=== PATIENT | male | born 1930 | race Caucasian/White ===

== ENCOUNTER → 2018-04-28 | Outpatient (CLI) | payer OTHER ==
[~2018-04-28] MED LIST: ALB5IS NEB; AMIODORONE; AMOX-263 PO; CARV3.1240 PO; FLUT250M9; FURO20TA PO; HYDR-4683 PO; LEVO125T7 PO; PROPAFENONE 150 MG; SENN-72 PO; ZAFI1TAB3
[2018-04-28 11:08] LABS: Basophils # (auto) 0.1 uL; Nucleated Red Blood Cells % 0.2 %
[2018-04-28 11:14] LABS: Basophils % (auto) 0.9 % (0.0-2.0); Eosinophils % (auto) 7.7 % (0.0-7.0); Hematocrit 55.5 % (41.0-53.0); Hemoglobin 18.6 g/dL (13.5-17.5); Lymphocytes # (auto) 1.4 uL; Lymphocytes % (auto) 11.5 % (10.0-50.0); Mean Corpuscular Hemoglobin 32.5 pg (28.0-32.0); Mean Corpuscular Hgb Conc. 33.5 g/dL (32.0-36.0); Mean Corpuscular Volume 97.1 fL (80.0-100.0); Monocytes # (auto) 1.4 uL; Monocytes % (auto) 11.1 % (0.0-12.0); Neutrophils # (auto) 8.6 uL; Neutrophils % (auto) 68.8 % (37.0-80.0); Platelet Count (auto) 405 10^3/uL (140-450); Red Blood Cells 5.71 10^6/uL (4.5-5.90); Red Cell Distribution Width 17.4 % (11.8-14.3); White Blood Cell 12.5 10^3/uL (4.4-10.8)
[2018-04-28 16:40] LABS: Potassium 4.5 mmol/L (3.5-5.1)
[2018-04-28 16:41] LABS: Albumin 3.2 g/dL (3.4-5.0); BUN/Creatinine Ratio 23.3; Bilirubin, Total 0.8 mg/dL (0.2-1.0); Calcium 8.7 mg/dL (8.5-10.1)
== END | disposition home or self-care (01) ==
LOC: LAB 10:49
PROVIDERS: ATTEND Internal Medicine
DX: J44.9 Chronic obstructive pulmonary disease, unspecified (principal); E78.2 Mixed hyperlipidemia; N18.2 Chronic kidney disease, stage 2 (mild)
CPT/HCPCS: 36415; 80053; 84443; 85025

== ENCOUNTER → 2018-05-08 | Outpatient (CLI) | payer OTHER | END | disposition home or self-care (01) | LOC: RT 08:52 | PROVIDERS: ATTEND Internal Medicine Pulmonary Disease | DX: J44.9 Chronic obstructive pulmonary disease, unspecified (principal); Z99.81 Dependence on supplemental oxygen | CPT/HCPCS: 94060; 94640 ==

== ENCOUNTER → 2018-08-12 | Outpatient (CLI) | payer OTHER ==
[2018-08-12 12:24] LABS: Basophils # (auto) 0.1 uL; Basophils % (auto) 0.7 % (0.0-2.0); Mean Corpuscular Volume 97.4 fL (80.0-100.0)
[2018-08-12 12:27] LABS: Eosinophils # (auto) 0.9 uL; Eosinophils % (auto) 7.3 % (0.0-7.0); Hemoglobin 19.1 g/dL (13.5-17.5); Lymphocytes # (auto) 1.1 uL; Lymphocytes % (auto) 8.9 % (10.0-50.0); Mean Corpuscular Hemoglobin 32.7 pg (28.0-32.0); Mean Corpuscular Hgb Conc. 33.6 g/dL (32.0-36.0); Monocytes # (auto) 1.2 uL; Monocytes % (auto) 9.7 % (0.0-12.0); Neutrophils # (auto) 9.1 uL; Neutrophils % (auto) 73.4 % (37.0-80.0); Nucleated Red Blood Cells % 0.2 %; Platelet Count (auto) 432 10^3/uL (140-450); Red Blood Cells 5.84 10^6/uL (4.5-5.90); Red Cell Distribution Width 16.2 % (11.8-14.3); White Blood Cell 12.3 10^3/uL (4.4-10.8)
[2018-08-12 12:28] LABS: Hematocrit 56.9 % (41.0-53.0)
[2018-08-12 12:55] LABS: Calcium 9.4 mg/dL (8.5-10.1); Potassium 4.8 mmol/L (3.5-5.1)
[2018-08-12 12:57] LABS: BUN/Creatinine Ratio 19.9
== END | disposition home or self-care (01) ==
LOC: LAB 11:59
PROVIDERS: ATTEND Internal Medicine
DX: J44.9 Chronic obstructive pulmonary disease, unspecified (principal); N18.2 Chronic kidney disease, stage 2 (mild); R09.02 Hypoxemia
CPT/HCPCS: 36415; 80048; 85025

== ENCOUNTER → 2018-11-05 | Outpatient (CLI) | payer OTHER ==
[2018-11-05 11:55] LABS: Basophils # (auto) 0.1 uL; Nucleated Red Blood Cells % 0.3 %
[2018-11-05 11:59] LABS: Basophils % (auto) 0.5 % (0.0-2.0); Eosinophils # (auto) 0.5 uL; Eosinophils % (auto) 3.8 % (0.0-7.0); Hemoglobin 17.7 g/dL (13.5-17.5); Lymphocytes # (auto) 0.7 uL; Lymphocytes % (auto) 5.9 % (10.0-50.0); Mean Corpuscular Hemoglobin 32.5 pg (28.0-32.0); Mean Corpuscular Hgb Conc. 32.1 g/dL (32.0-36.0); Mean Corpuscular Volume 101.1 fL (80.0-100.0); Neutrophils # (auto) 9.8 uL; Neutrophils % (auto) 81.8 % (37.0-80.0); Platelet Count (auto) 364 10^3/uL (140-450); Red Blood Cells 5.44 10^6/uL (4.5-5.90); Red Cell Distribution Width 18.7 % (11.8-14.3); White Blood Cell 11.9 10^3/uL (4.4-10.8)
[2018-11-05 12:31] LABS: Potassium 4.4 mmol/L (3.5-5.1)
[2018-11-05 12:34] LABS: BUN/Creatinine Ratio 17.2; Bilirubin, Total 0.8 mg/dL (0.2-1.0); Total Protein 8.1 g/dL (6.4-8.2)
== END | disposition home or self-care (01) ==
LOC: LAB 10:30
PROVIDERS: ATTEND Internal Medicine
DX: J44.9 Chronic obstructive pulmonary disease, unspecified (principal); E78.49 Other hyperlipidemia; N18.3 Chronic kidney disease, stage 3 (moderate); Z85.038 Personal history of other malignant neoplasm of large intestine
CPT/HCPCS: 36415; 80053; 82378; 83615; 84443; 85025